=== PATIENT | male | born 1990 | race Caucasian/White ===

== ENCOUNTER 2019-07-29 01:34 | Emergency (ER) | payer MEDICAID, OTHER ==
[~2019-07-29] VITALS: Ht 170.2 cm; Wt 77.6 kg
[2019-07-29 02:25] VITALS: BP 114/73
--- NOTE | 2019-07-29 02:50 | NUR ---
BIBSELF FROM HOME TO ER BED 10. AAOX4. NO RESP DISTRESS NOTED. AMBULATORY. C/O ABDOMINAL PAIN. PT REPORTS THAT HE HAS BEEN HAVING ABDOMINAL PAIN SINCE THIS MORNING. RATES PAIN 01/09. PT REPORTS THAT HE ONIONS AND HIS STOMACH STARTED TO HURT. DENIES N/V. DENIES CP. AWATING MD FOR EVAL.
[2019-07-29] MEDS ORDERED: LIDOCAINE VISCOUS 2% UD 15 ML UDC MM ONE (03:00)
[2019-07-29] MEDS ORDERED: MAG HYDROX/AL HYDROX/SIMETH 30 ML UDC PO ONE (03:00)
[2019-07-29] MEDS ORDERED: MAG HYDROX/AL HYDROX/SIMETH 30 ML UDC ONE (03:02)
[2019-07-29] MEDS ORDERED: LIDOCAINE VISCOUS 2% UD 15 ML UDC ONE (03:02)
--- NOTE | 2019-07-29 03:04 | NUR ---
PT REFUSED MEDICATION. AWARE.
--- NOTE | 2019-07-29 03:08 | NUR ---
Patient discharged to home in stable condition. Written and verbal after care instructions given. Patient verbalizes understanding of instruction.
== END 2019-07-29 03:09 | disposition home or self-care (01) ==
LOC: ER 01:36
DX: R10.10 Upper abdominal pain, unspecified (principal); F17.200 Nicotine dependence, unspecified, uncomplicated

== ENCOUNTER 2019-07-31 21:58 | Emergency (ER) | payer MEDICAID ==
[~2019-07-31] VITALS: Ht 170.2 cm; Wt 72.6 kg
--- NOTE | 2019-07-31 22:06 | NUR ---
CALLED FOR TRIAGE, NO ANSWER.
--- NOTE | 2019-07-31 22:12 | NUR ---
CALLED FOR TRIAGE, NO ANSWER.
--- NOTE | 2019-07-31 22:17 | NUR ---
CALLED FOR TRIAGE, NO ANSWER.
--- NOTE | 2019-07-31 22:40 | NUR ---
CALLED FOR TRIAGE, NO ANSWER.
--- NOTE | 2019-07-31 23:00 | NUR ---
CALLED FOR TRIAGE PT REFUSING TO HAVE V/S TAKEN AND WALKED BACKT O WAITING ROOM.
--- NOTE | 2019-07-31 23:00 | NUR ---
Elmer montemayor in ED - 08/01/19 at 0123 by CRISTINA CALLED FOR TRIAGE PT RESUNG TO HAVE V/S TAKEN AND WALKED BACKT O WAITING ROOM.
== END 2019-07-31 23:16 | disposition left against medical advice (07) ==
LOC: ER 22:08
DX: R56.9 Unspecified convulsions (principal); Z53.21 Procedure and treatment not carried out due to patient leaving prior to being seen by health care provider

== ENCOUNTER 2019-08-15 01:36 | Emergency (ER) | payer MEDICAID, OTHER ==
[~2019-08-15] VITALS: Ht 170.2 cm; Wt 77.6 kg
[2019-08-15 01:43] VITALS: BP 131/97
== END 2019-08-15 04:30 | disposition home or self-care (01) ==
LOC: ER 01:40
DX: B19.20 Unspecified viral hepatitis C without hepatic coma (principal); R11.10 Vomiting, unspecified; F11.90 Opioid use, unspecified, uncomplicated; R56.9 Unspecified convulsions; F17.200 Nicotine dependence, unspecified, uncomplicated
CPT/HCPCS: 74018

== ENCOUNTER 2019-09-12 00:55 | Emergency (ER) | payer OTHER ==
[~2019-09-12] VITALS: Ht 170.2 cm; Wt 77.6 kg
[2019-09-12 00:55] VITALS: BP 110/69
--- NOTE | 2019-09-12 01:24 | NUR ---
seen by Dr. Montoya
== END 2019-09-12 01:32 | disposition home or self-care (01) ==
LOC: ER 00:56
DX: B35.6 Tinea cruris (principal); F17.200 Nicotine dependence, unspecified, uncomplicated; Z86.19 Personal history of other infectious and parasitic diseases

== ENCOUNTER 2019-09-12 20:38 | Emergency (ER) | payer OTHER ==
[~2019-09-12] VITALS: Ht 170.2 cm; Wt 77.1 kg
[2019-09-12 20:48] VITALS: BP 118/72
--- NOTE | 2019-09-12 20:49 | NUR ---
BIBSELF C/O REDDNESS AND PAIN BILATERAL HANDS X3 DAYS. MD AT BEDSIDE FOR EVAL.
== END 2019-09-12 21:04 | disposition home or self-care (01) ==
LOC: ER 21:04
DX: L30.9 Dermatitis, unspecified (principal); F17.200 Nicotine dependence, unspecified, uncomplicated; Z86.19 Personal history of other infectious and parasitic diseases

== ENCOUNTER 2019-10-31 05:37 | Emergency (ER) | payer OTHER ==
[~2019-10-31] VITALS: Ht 170.2 cm; Wt 77.6 kg
[2019-10-31 05:54] VITALS: BP 128/82
--- NOTE | 2019-10-31 05:57 | NUR ---
PT STATED HE WANTS TO LEAVE THE HOSPITAL AND GO TO A [facility]" . PT STABLE . VSS. AMBULATORY W. STABLE GAIT. DR TAPIA MADE AWARE.
--- NOTE | 2019-10-31 06:10 | NUR ---
PT CAME BACK AND REQUESTING TO BE SEEN BY BATEMAN
--- NOTE | 2019-10-31 06:18 | NUR ---
PT CAME BACK AGAIN. SAW PT.
--- NOTE | 2019-10-31 06:18 | NUR ---
Patient discharged to home in stable condition. Written and verbal after care instructions given. Patient verbalizes understanding of instruction. Pt ambulatory with a steady gait
== END 2019-10-31 06:20 | disposition home or self-care (01) ==
LOC: ER 05:42
DX: Z53.21 Procedure and treatment not carried out due to patient leaving prior to being seen by health care provider (principal)

== ENCOUNTER 2022-07-17 20:31 | Inpatient (IN) | payer OTHER ==
[~2022-07-17] VITALS: Ht 170.2 cm; Wt 75.7 kg
--- NOTE | 2022-07-17 21:09 | NUR ---
TO ER BED 14. BIBMOTHER C/O N/V & ABD PAIN X2 DAYS. PT IS ALERT AND ORIENTED. RR EVEN AND NONLABORED. CONNECTED TO MONITOR. AWAITING MD ARROYO
[2022-07-17] MEDS ORDERED: KETOROLAC TROMETHAMINE 15 MG/ML VIAL ONE (21:26)
[2022-07-17] MEDS ORDERED: ONDANSETRON HCL/PF 4 MG/2 ML VIAL ONE (21:26)
[2022-07-17] MEDS ORDERED: IV NS 0.9% 1,000 ML IV ONE (21:30)
[2022-07-17] MEDS ORDERED: ONDANSETRON HCL/PF 4 MG/2 ML VIAL IV ONE (21:30)
[2022-07-17] MEDS ORDERED: KETOROLAC TROMETHAMINE INJ 30 MG/ML VIAL IV ONE (21:30)
--- NOTE | 2022-07-17 21:42 | NUR ---
PATIENT UNABLE TO PROVIDE URINE AT THIS TIME
--- NOTE | 2022-07-17 21:42 | NUR ---
BLOOD WORK COLLECTED SENT TO LAB
[2022-07-17 21:56] LABS: BASOPHILS % (AUTO) 0.4 % (0.0-2.0); EOSINOPHILS % (AUTO) 3.3 % (0.0-6.0); HEMATOCRIT 38 % (39-51); HEMOGLOBIN 12.5 g/dL (13.5-17.5); LYMPHOCYTES # (AUTO) 2.2 K/uL (0.8-4.8); LYMPHOCYTES % (AUTO) 21.9 % (20.0-44.0); MEAN CORPUSCULAR HGB CONC 33 g/dl (31.0-36.0); MEAN CORPUSCULAR VOLUME 95 fL (80-96); MONOCYTES # (AUTO) 0.5 K/uL (0.1-1.30); MONOCYTES % (AUTO) 4.8 % (2.0-12.0); NEUTROPHILS % (AUTO) 69.6 % (43.0-81.0); PLATELET COUNT (AUTO) 230 K/uL (150-450); RED BLOOD CELL COUNT(AUTO) 3.97 MIL/uL (4.5-6.0)
[2022-07-17] MEDS ORDERED: HALOPERIDOL LACTATE INJ 5 MG/ML VIAL IM ONE (22:00)
[2022-07-17] MEDS ORDERED: HALOPERIDOL LACTATE INJ 5 MG/ML VIAL ONE (22:03)
--- NOTE | 2022-07-17 22:10 | NUR ---
PT STILL HAS NAUSEA. ADMIN HALDOL 5MG IM ORDERED. WILL REASSESS
[2022-07-17 22:32] LABS: ALBUMIN 3.9 g/dL (3.4-5.0); BILIRUBIN,DIRECT 0.1 mg/dL (0.0-0.2); BILIRUBIN,TOTAL 0.3 mg/dL (0.2-1.0); CALCIUM, SERUM 8.8 mg/dL (8.5-10.1); CREATININE 1.1 mg/dL (0.6-1.3); POTASSIUM 3.4 mmol/L (3.5-5.1); TOTAL PROTEIN, SERUM 6.9 g/dL (6.4-8.2)
--- NOTE | 2022-07-18 00:21 | NUR ---
COVID SWAB COLLECTED AND SENT TO LAB
[2022-07-18] MEDS ORDERED: METOCLOPRAMIDE HCL 10 MG/2 ML VIAL IV ONE (00:30)
[2022-07-18] MEDS ORDERED: METOCLOPRAMIDE HCL 10 MG/2 ML VIAL ONE ×3 (00:39→07:28)
[2022-07-18] MEDS ORDERED: IV NS 0.9% 1,000 ML IV PRN (02:00)
[2022-07-18] MEDS ORDERED: ZOLPIDEM TARTRATE 5 MG TABLET PO PRN (02:00)
[2022-07-18] MEDS ORDERED: MAGNESIUM HYDROXIDE 30 ML UDC PO PRN (02:00)
[2022-07-18] MEDS ORDERED: Z GUARD REMEDY 4 OZ OINT TP PRN (02:00)
[2022-07-18] MEDS ORDERED: ACETAMINOPHEN 325 MG TABLET PO PRN (02:00)
[2022-07-18] MEDS ORDERED: MAG HYDROX/AL HYDROX/SIMETH 30 ML UDC PO PRN (02:00)
[2022-07-18] MEDS ORDERED: ONDANSETRON HCL/PF 4 MG/2 ML VIAL IVP PRN (02:00)
[2022-07-18] MEDS: METOCLOPRAMIDE HCL 10 MG/2 ML VIAL IV SCH ×2 (02:40→07:37)
[2022-07-18] MEDS ORDERED: PANTOPRAZOLE 40 MG VIAL IV SCH (09:00)
[2022-07-18] MEDS ORDERED: ONDA4TAB5 PO (09:07)
[2022-07-18] MEDS ORDERED: PANTOPRAZOLE 40 MG VIAL ONE (09:22)
--- NOTE | 2022-07-18 09:38 | NUR ---
IV removed. Catheter intact and site benign. Pressure and 4x4 applied to site. No bleeding noted.
--- NOTE | 2022-07-18 09:39 | NUR ---
PT SEEN BY DR PENA TODAY W/ ORDER FOR DISCHARGE TO HOME. EXITCARE FOR DISCHARGE DONE. PRESCRIPTION SENT ELECTRONICALLY. PT SIGNED DISCHARGE FORM; PT'S MOM AT BEDSIDE TO PICKUP PT.
[2022-07-18 10:03] VITALS: BP 126/70
== END 2022-07-18 09:39 | disposition home or self-care (01) | DRG 249 ==
LOC: ER 20:34 → TRANSITION 07-18 01:08
PROVIDERS: ADMIT Nurse Practitioner Acute Care; ATTEND Nurse Practitioner Acute Care
DX: R11.2 Nausea with vomiting, unspecified (principal); D63.8 Anemia in other chronic diseases classified elsewhere; F12.988 Cannabis use, unspecified with other cannabis-induced disorder; Z20.822 Contact with and (suspected) exposure to COVID-19; Z86.19 Personal history of other infectious and parasitic diseases; F12.90 Cannabis use, unspecified, uncomplicated; E87.6 Hypokalemia; Z86.59 Personal history of other mental and behavioral disorders
CPT/HCPCS: 36415; 80048-TC; 80076-TC; 83690-TC; 85025-TC; 87081-TC; C9113; G0378; G0480; J1630; J1885; J2405; J2765; J7030